=== PATIENT | male | born 2000 | race Caucasian/White ===

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

== ENCOUNTER 2019-03-28 10:35 | Emergency (ER) | payer SELFPAY ==
[~2019-03-28] VITALS: Ht 193 cm; Wt 72.6 kg
[~2019-03-28 10:35] MED LIST changes: +ADVIL MIGRAINE200 MG PO
[2019-03-28] MEDS ORDERED: OSELTAMIVIR PHO75 MG PO (10:52)
[2019-03-28] MEDS ORDERED: ONDANSETRON ODT8 MG PO (13:29)
== END 2019-03-28 13:58 | disposition home or self-care (01) ==
LOC: ED 10:35
DX: J11.1 Influenza due to unidentified influenza virus with other respiratory manifestations (principal); M79.10 Myalgia, unspecified site; F17.200 Nicotine dependence, unspecified, uncomplicated; Z79.899 Other long term (current) drug therapy
CPT/HCPCS: 80053; 81001; 82550; 85025; 96361; 96374; 96375; 99283-25; J1885; J2405; J7030

== ENCOUNTER 2025-02-20 15:07 | Emergency (ER) | payer OTHER ==
[~2025-02-20] VITALS: Ht 190.5 cm; Wt 82.8 kg
[~2025-02-20 15:07] MED LIST changes: +ONDANSETRON ODT8 MG PO; +OSELTAMIVIR PHO75 MG PO
[2025-02-20 18:05] VITALS: BP 99/84
== END 2025-02-20 18:05 | disposition left against medical advice (07) ==
LOC: ED 15:07
DX: Z53.21 Procedure and treatment not carried out due to patient leaving prior to being seen by health care provider (principal)

== ENCOUNTER 2025-03-04 06:50 | Day surgery (SDC) | payer OTHER ==
[2025-02-25 13:47] VITALS: BP 141/69
[~2025-03-04] VITALS: Ht 190.5 cm; Wt 81.0 kg
[~2025-03-04 06:50] MED LIST changes: +BUPIVACAINE HCL 0.25% 50 ML MDV ONE; +LACTATED RINGER'S 1,000 ML IV SCH
[2025-03-04] MEDS ORDERED: LIDOCAINE HCL 1% 5 ML SDV INJ ONE (07:00)
[2025-03-04] MEDS ORDERED: IBLOOD GLUCOSE TEST STRIP 1 EA TEST VI PRN ×2 (07:00→09:45)
[2025-03-04] MEDS ORDERED: CEFAZOLIN SODIUM 2 GM in SODIUM CHLORIDE 0.9% 100 ML IV SCH (07:00)
[2025-03-04 07:09] VITALS: BP 125/81
[2025-03-04] MEDS ORDERED: fentaNYL citrate 100 MCG/2 ML VIAL ONE (07:23)
[2025-03-04] MEDS ORDERED: LIDOCAINE HCL 2% 5 ML SDV ONE (07:23)
[2025-03-04] MEDS ORDERED: OXYCODONE/APAP 5/325 TAB PO PRN (08:30)
[2025-03-04] MEDS ORDERED: TRAMADOL HCL 50 MG TAB PO PRN (08:30)
[2025-03-04] MEDS ORDERED: HYDROmorphone HCL 1 MG/ML SYR IV PRN ×2 (08:30→09:45)
[2025-03-04] MEDS ORDERED: KETOROLAC TROMETHAMINE 30 MG/ML VIAL IV PRN (09:45)
[2025-03-04] MEDS ORDERED: PROCHLORPERAZINE EDISYLATE 10 MG/2 ML VIAL IV PRN (09:45)
[2025-03-04] MEDS ORDERED: NALOXONE HCL 0.4 MG SYR IV PRN (09:45)
[2025-03-04] MEDS ORDERED: fentaNYL citrate 50 MCG/ML SDV IV PRN (09:45)
[2025-03-04 11:52] VITALS: BP 108/75
--- NOTE | 2025-03-04 11:59 | NUR ---
03/04/25 Josefa Zambrano Nilda 0916- PT PRESENTS TO PACU, SEMI HUBBARD POSITION, NON REACTIVE TO STIMULUS. OPA IN PLACE, BREATHING EVEN AND NON LABORED, O2 AT 6L PER MASK. ABD SOFT, NON DISTENDED. MESH UNDERWEAR IN PLACE WITH DRESSING, SMALL AMOUNT OF DRAINAGE. ALL MONITORS IN PLACE. 0925- PT WAKES ON OWN, PT APPEARS VERY CONFUSED, MULTIPLE INSTRUCTIONS BEFORE OPENING MOUTH TO REMOVE OPA. O2 LEFT IN PLACE. PT SPEECH IS HARD TO UNDERSTAND, PT IS TEARFUL. 0928- MOVED TO ROOM AIR AT THIS TIME. PT CONTINUES TO CONVERSE WITH THIS RN ABOUT RECENT LIFE EVENTS AND BEING EMOTIONAL. PT IS TEARFUL, BUT COOPERATIVE. 0938- PT SAT UP IN BED, ICE WATER PROVIDED. TOLERATING WELL. PT SPEECH MORE CLEAR, APPEARS VERY SAD. DISCUSSED SEEING PCP TO TALK ABOUT RECENT ANXIETY AND DEPRESSION TO GET FURTHER HELP. PT IS AGREEABLE. 0950- PT CONTINUES TO DENY PAIN, NO SIGNS OF DISTRESS PERTAINING TO SURGERY. PT JUST VERY DOWN AND TEARFUL ABOUT LIFE SITUATIONS. 1000- PT UP TO SIDE OF BED, TOLERATING WELL. AMBULATED TO BATHROOM WITH STEADY GAIT. PT TO GET DRESSED, SENT FOR VEHICLE. 1015- PT AMBULATED BACK TO BED WITH STEADY GAIT, SALINE LOCK REMOVED, TIP INTACT, DRESSING APPLIED. PT VERBALIZED UNDERSTANDING OF INSTRUCTIONS. TRANSFERRED TO WHEELCHAIR WITH STEADY GAIT AND TAKEN TO FAMILY CAR. INSTRUCTIONS ALSO GIVEN TO . PT HAS ALL BELONGINGS AND RX IN HAND.
== END 2025-03-04 10:15 | disposition home or self-care (01) ==
LOC: DS 06:50
PROVIDERS: ATTEND Urology
PROC: 0VNSXZZ Release Penis, External Approach (ICD-10-PCS; principal; 2025-03-04 07:30)
DX: N47.5 Adhesions of prepuce and glans penis (principal)
CPT/HCPCS: 00920; J2003; J2405; J2704; J3010; J7121